=== PATIENT | female | born 1995 | race Caucasian/White ===

== ENCOUNTER 2021-01-09 20:22 | Emergency (ER) | payer MEDICAID ==
[~2021-01-09] VITALS: Ht 170.2 cm; Wt 64.5 kg
[2021-01-09 20:51] VITALS: BP 145/93
[2021-01-09] MEDS ORDERED: bacitracin 15gm ointment TP ONE (22:55)
[2021-01-09] MEDS ORDERED: TETanus/Pertussis (Acell)/Diphther VAC/PF (Tdap-Adult) 0.5ml syringe IMVAC ONE (22:55)
[2021-01-09] MEDS ORDERED: ibuprofen 200mg tablet PO ONE (23:00)
[2021-01-09] MEDS ORDERED: ibuprofen tablet 400 MG TABLET PO ONE (23:00)
== END 2021-01-09 23:55 | disposition home or self-care (01) ==
LOC: ER 20:23
DX: S61.412A Laceration without foreign body of left hand, initial encounter (principal); W45.8XXA Other foreign body or object entering through skin, initial encounter; Y93.89 Activity, other specified; Y92.89 Other specified places as the place of occurrence of the external cause; Y99.8 Other external cause status
CPT/HCPCS: 12001; 90471; 90715; 99283

== ENCOUNTER 2021-08-23 00:51 | Emergency (ER) | payer MEDICAID ==
[~2021-08-23] VITALS: Ht 170.2 cm; Wt 65.0 kg
[2021-08-23 01:05] VITALS: BP 124/88
[2021-08-23] MEDS ORDERED: HYDR-3972 PO (02:07)
[2021-08-23] MEDS ORDERED: HYDROcodone/acetaminophen 10/325mg tab PO ONE (02:10)
== END 2021-08-23 03:13 | disposition home or self-care (01) ==
LOC: ER 00:51
DX: S52.571A Other intraarticular fracture of lower end of right radius, initial encounter for closed fracture (principal); F17.200 Nicotine dependence, unspecified, uncomplicated; Z79.899 Other long term (current) drug therapy; W01.0XXA Fall on same level from slipping, tripping and stumbling without subsequent striking against object, initial encounter; Y93.K1 Activity, walking an animal; Y92.89 Other specified places as the place of occurrence of the external cause; Y99.8 Other external cause status
CPT/HCPCS: 29125; 73110; 99283; A4565; A6446; A6449